=== PATIENT | male | born 1985 | race American Indian/Alaskan Native ===

== ENCOUNTER 2017-08-19 23:20 | Emergency (ER) | payer OTHER ==
[2017-08-19 23:26] VITALS: BP 134/69; PULSE 60; RESP 20; TEMP 98.3; O2SAT 98
[2017-08-20] MEDS ORDERED: Amoxicillin-Clav 875-125 mg Tab PO STA (00:30)
[2017-08-20] MEDS ORDERED: Amoxicillin-Clav 875-125 mg Tab PO ONE (00:42)
--- NOTE | 2017-08-20 00:47 | C.PDOC ---
History Of Present Illness 31 year old male presents to the ED c/o pain to the left side of his throat. Patient reports feeling a ball underneath his jaw which is painful. Patient denies any fever, chills, cough, nausea, vomit, trauma, injury, dysphagia, runny nose, recent travel. Time Seen by Provider: 08/19/17 23:27 Chief Complaint (Nursing): Dental Pain History Per: Patient History/Exam Limitations: no limitations Onset/Duration Of Symptoms: Days (2) Current Symptoms Are (Timing): Still Present Quality: Positive for: "Pain" Recent travel outside of the [place]: No Additional History Per: Patient Past Medical History Reviewed: Historical Data, Nursing Documentation, Vital Signs Vital Signs: Last Vital Signs Temp 98.3 F 08/19/17 23:21 Pulse 60 08/19/17 23:21 Resp 20 08/19/17 23:21 BP 134/69 08/19/17 23:21 Pulse Ox 98 08/20/17 03:28 - Medical History PMH: No Chronic Diseases Surgical History: No Surg Hx Family History: States: Unknown Family Hx - Social History Hx Tobacco Use: No Hx Alcohol Use: No Hx Substance Use: No - Immunization History Hx Tetanus Toxoid Vaccination: No Hx Influenza Vaccination: No Hx Pneumococcal Vaccination: No Review Of Systems Constitutional: Negative for: Fever, Chills ENT: Positive for: Throat Pain, Throat Swelling Respiratory: Negative for: Shortness of Breath Gastrointestinal: Negative for: Abdominal Pain Skin: Negative for: Rash Neurological: Negative for: Weakness, Numbness Physical Exam - Physical Exam Appears: Non-toxic, No Acute Distress Skin: Normal Color, Warm, Dry, No Rash Head: Atraumatic, Normacephalic Eye(s): bilateral: Normal Inspection Ear(s): Bilateral: Normal Nose: No Discharge Oral Mucosa: Moist Teeth: Normal Dentition, No Tender To Palpation Throat: Erythema (minimal), No Exudate Neck: Normal ROM, Supple Lymphatic: Adenopathy (submandibular swollen, tender) Cardiovascular: Rhythm Regular, No Friction Rub, No Murmur Respiratory: Normal Breath Sounds, No Rales, No Rhonchi, No Wheezing Gastrointestinal/Abdominal: Soft, No Tenderness, No Guarding, No Rebound Extremity: Normal ROM, No Swelling Neurological/Psych: Oriented x3, Normal Speech, Normal Sensation, Normal Reflexes Gait: Steady ED Course And Treatment O2 Sat by Pulse Oximetry: 98 (ON RA) Pulse Ox Interpretation: Normal Medical Decision Making Medical Decision Making: Plan: * Augmentin 1 tab PO * Motrin 600 mg PO Disposition - Disposition Referrals: [facility] [Outside] Disposition: HOME/ ROUTINE Disposition Time: 00:46 Condition: GOOD Additional Instructions: Follow up with the medical doctor/clinic within 1-2 days. Return if worsened. 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 - Scribe Statement The provider has reviewed the documentation as recorded by the Scribe Justin Enriquez All medical record entries made by the Scribe were at my direction and personally dictated by me. I have reviewed the chart and agree that the record accurately reflects my personal performance of the history, physical exam, medical decision making, and the department course for this patient. I have also personally directed, reviewed, and agree with the discharge instructions and disposition.
== END 2017-08-20 00:54 | disposition home or self-care (01) ==
LOC: C.ER 23:20
DX: J02.9 Acute pharyngitis, unspecified (principal)

== ENCOUNTER 2018-01-07 14:05 | Emergency (ER) | payer OTHER ==
[2018-01-07 14:12] VITALS: BP 118/81; PULSE 70; RESP 18; TEMP 98.5; O2SAT 99
--- NOTE | 2018-01-07 14:25 | C.PDOC ---
History Of Present Illness 32 y/o male with no significant PMH who presents to the ED c/o facial swelling and toothache x 1 day. Pt had mild toothache on bottom right jaw yesterday and relieved the pain with 200mg ibuprofen, last dose 4am today. Upon waking, pt noticed mild facial swelling and redness over the right mandible. Pt was seen by a dentist in October and referred to oral surgery for extraction of 2 molars on the right mandible, but refused procedure secondary to out of pocket cost. Denies injury to the area, fever, chills, SOB, N/V, difficulty swallowing, neck or throat swelling, eye pain, sore throat, ear pain, dizziness, headache. NKDA Time Seen by Provider: 01/07/18 14:13 Chief Complaint (Nursing): Dental Pain History Per: Patient History/Exam Limitations: no limitations Onset/Duration Of Symptoms: Days Current Symptoms Are (Timing): Worse Severity: Mild Pain Scale Rating Of: 3 Quality: Positive for: Dull Past Medical History Reviewed: Historical Data, Nursing Documentation, Vital Signs Vital Signs: Last Vital Signs Temp 98.5 F 01/07/18 14:08 Pulse 70 01/07/18 14:08 Resp 18 01/07/18 14:08 BP 118/81 01/07/18 14:08 Pulse Ox 99 01/07/18 14:53 Family History: States: Unknown Family Hx - Social History Hx Tobacco Use: No Hx Alcohol Use: Yes Hx Substance Use: No - Immunization History Hx Tetanus Toxoid Vaccination: No Hx Influenza Vaccination: No Hx Pneumococcal Vaccination: No Review Of Systems Constitutional: Negative for: Fever, Chills, Sweats, Weakness Eyes: Negative for: Pain, Vision Change, Conjunctivae Inflammation, Redness ENT: Positive for: Mouth Pain (2 molars over right mandible), Mouth Swelling ( inside of cheek right side). Negative for: Ear Pain, Ear Discharge, Nose Pain, Nose Discharge, Nose Congestion, Throat Pain, Throat Swelling Cardiovascular: Negative for: Chest Pain Respiratory: Negative for: Shortness of Breath Gastrointestinal: Negative for: Nausea, Vomiting, Abdominal Pain Musculoskeletal: Negative for: Neck Pain Skin: Positive for: Other (redness and swelling of skin over right side of mandible). Negative for: Rash, Lesions, Bruising Neurological: Negative for: Weakness, Headache, Dizziness Physical Exam - Physical Exam Appears: Well, Non-toxic, No Acute Distress Skin: Warm, Dry, No Rash, No Mottled Head: Atraumatic, Normacephalic, Tenderness (over right mandible), Swelling ( over right mandible), No Abrasion, No Laceration Eye(s): bilateral: Normal Inspection, PERRL, EOMI Ear(s): Bilateral: Normal Nose: Normal, No Discharge, No Epistaxis, No Tenderness Oral Mucosa: Moist, Other (swelling and redness of buccal mucosa next to back 2 molars, right mandible) Tongue: Normal Appearing, No Swelling, No Lesions, No Laceration Lips: Normal Appearing, No Swelling, No Abrasion Teeth: Caries (cracked 2 molars, right mandible) Gingiva: Swelling (around back 2 molars, right mandible) Throat: Normal, No Erythema, No Exudate, No Drooling Neck: Normal ROM, No Paracervical Tenderness Lymphatic: Normal Exam, No Adenopathy Cardiovascular: Rhythm Regular Respiratory: Normal Breath Sounds Neurological/Psych: Oriented x3, Normal Speech, Normal Cognition, Normal Motor, Normal Sensation ED Course And Treatment O2 Sat by Pulse Oximetry: 99 Medical Decision Making Medical Decision Makin32 y/o male with no significant PMH who presents to the ED c/o facial swelling and toothache x 1 day. Pt had mild toothache on bottom right jaw yesterday and relieved the pain with 200mg ibuprofen, last dose 4am today. Upon waking, pt noticed mild facial swelling and redness over the right mandible. Pt was seen by a dentist in October and referred to oral surgery for extraction of 2 molars on the right mandible, but refused procedure secondary to out of pocket cost. Denies injury to the area, fever, chills, SOB, N/V, difficulty swallowing, neck or throat swelling, eye pain, sore throat, ear pain, dizziness, headache. Physical exam reveals tenderness, redness, and swelling of skin over right mandible. No fluctuance. Dental exam significant for 2 cracked back molars on right side with associated redness and swelling of gingiva and buccal mucosa. No fluctance. ENT exam otherwise normal, no soft palate or uvular edema. Will give referral to outpatient clinic to receive dental care Will prescribe 300mg Clindamycin PO q8h x 7 days (first dose here) Will prescribe 600mg Ibuprofen PO q6h prn for pain #20 pills (one dose here) Pt educated on importance of following up with clinic and dangers of untreated dental caries. Pt educated on use of prescribed medication. Plan discussed with pt who understands and agrees. Pt comfortable with discharge home. Disposition - Disposition Referrals: [facility] [Outside] Disposition: HOME/ ROUTINE Disposition Time: 14:25 Condition: IMPROVED Additional Instructions: Take 1 tablet Clindamycin every 8 hours x 7 days Take 1 tablet 600mg Ibuprofen every 6 hours as needed for pain Followup with clinic within 2 days. Return to ED if symptoms persist or worsen (fever, neck or throat swelling, difficulty breathing) Prescriptions: Clindamycin [Cleocin] 300 mg PO Q8H 7 Days #21 cap Ibuprofen [Motrin Tab] 600 mg PO Q6H PRN #20 tab PRN Reason: Pain, Moderate (4-7) Instructions: Tooth Abscess (DC), Dental Pain (DC) Forms: [facility], [place] ([place]), Work Excuse - Clinical Impression Clinical Impression: Toothache, Dental abscess
== END 2018-01-07 14:57 | disposition home or self-care (01) ==
LOC: C.ER 14:05
DX: K04.7 Periapical abscess without sinus (principal); K08.89 Other specified disorders of teeth and supporting structures